=== PATIENT | female | born 1945 | race Caucasian/White ===

== ENCOUNTER → 2016-08-23 | Outpatient (REF) | payer MEDICARE, OTHER ==
[~2016-08-23] MED LIST: ACET65TA OR; AMIO20TA PO; BISO5TAB5 PO; CALC500C16 PO; CALC600T10 PO; CHEW500C2 PO; CIPR500T19 OR; CLEO300C2 PO; CYCL10TA PO; DIGO0.12 PO; DIOVAN PO; DOXY10CA PO; ELIQ5TAB PO; ESTR3TA PO; FISH1000 PO; FLON1SPR; HYDR-3713 PO; LISI-542 PO; LISI10TA4 PO; MAGN400T5 PO; METO50TA2 PO; MULTIVIT PO; OMEP40CA2 PO; ONDA4TAB6 PO; POTA99TA PO; POTASSIUM PO; SUCR1SS PO; SUCR1TAB56 PO; TUMS500C PO; VIT D 4000 PO; VITA-113 PO; VITA200038 PO; VITATAB11 PO; VITMTA PO
[2016-08-23 12:16] LABS: MEAN CORPUSCULAR HEMOGLOBIN 33.3 pg (27.0-33.0); MEAN CORPUSCULAR HGB CONC 33.2 g/dl (32.0-36.5); MEAN CORPUSCULAR VOLUME 100.3 fl (80.0-96.0); RED CELL DISTRIBUTION WIDTH 12.4 % (11.5-14.5)
[2016-08-23 12:42] LABS: ALBUMIN 3.7 GM/DL (3.2-5.2); ALBUMIN/GLOBULIN RATIO 1.09 (1.00-1.93); BILIRUBIN,TOTAL 0.4 MG/DL (0.2-1.0); CALCIUM LEVEL 9.3 MG/DL (8.8-10.2); CREATININE FOR GFR 1.11 MG/DL (0.55-1.02); GLOMERULAR FILTRATION RATE 51.7 (>39); POTASSIUM SERUM 4.7 MEQ/L (3.5-5.1); TOTAL PROTEIN 7.1 GM/DL (6.4-8.2)
== END ==
LOC: M LABDRAW1 11:28
PROVIDERS: ATTEND Internal Medicine Cardiovascular Disease
DX: R42 Dizziness and giddiness (principal); I48.0 Paroxysmal atrial fibrillation; I11.9 Hypertensive heart disease without heart failure; I50.42 Chronic combined systolic (congestive) and diastolic (congestive) heart failure; Z68.32 Body mass index [BMI] 32.0-32.9, adult

== ENCOUNTER → 2016-10-03 | Outpatient (CLI) | payer MEDICARE, OTHER ==
[~2016-10-03] MED LIST changes: +AMIO200T PO; -AMIO20TA PO; -CALC600T10 PO; +CALC600T31 PO; +DOXY100T2 PO; -DOXY10CA PO; -METO50TA2 PO; +METO50TA7 PO
--- NOTE | 2016-10-03 13:11 | REPMRS ---
Patient History The patient states she has not had a clinical breast exam in over a year. Patient is postmenopausal, had previous chest radiation therapy at age 54, and has history of cancer in the right breast at age 53. Family history of breast cancer in sister at age 52. Benign radio exam breast specimen of the right breast, April 23, 2014. Benign stereotatic loc for ea lesion of the right breast, April 23, 2014. US Guided Breast Biopsy of the left breast, February 17, 2014. Malignant lumpectomy of the right breast, 1999. Took estrogen for 22 years. Digital Woman Screen Mammo: October 03, 2016 - Exam #: [id number] Bilateral CC and MLO view(s) were taken. Technologist: Vania Parker, Technologist Prior study comparison: June 25, 2015, bilateral digital mammo screening bilat, performed at [facility]. October 12, 2010, bilateral digital mammo screening bilat, performed at [facility]. FINDINGS: The breast tissue is heterogeneously dense in the left breast. This may lower the sensitivity of mammography. FINDINGS: There are scattered fibroglandular densities in the right breast. There are scattered benign calcifications. ASSESSMENT: BI-RADS/ACR category 2 mammogram. Benign finding(s). Recommendation Follow-up diagnostic mammogram in 1 year. Electronically Signed By: Roman Blank M.D. 10/03/16 [id number]
--- NOTE | 2016-10-05 10:16 | DEXA ---
AP SPINE L1 - L4 1.091 -0.8 0.8 LT FEMUR TOTAL 0.772 -1.9 -0.4 RT FEMUR TOTAL 0.853 -1.2 0.3 TOTAL BODY TOTAL OTHER DUAL FEMUR FRAX* ASSESSMENT Risk factors: History of adult fracture, premature menopause. 10 year probability of fracture Major osteoporotic fracture 22.1 % Hip fracture 5.6 % COMMENTS: Normal bone densitometry of the spine. There is low bone density of hips. The density of the right hip has increased 1.1% since 04/09/2007. The density of the spine is increased 6.6% since the initial exam on 04/02/2002. The spine density has increased 0.3% since the most recent exam on 04/09/2007. The spine density of the left hip has decreased 9.2% since the initial exam on 04/02/2002. The density of the left hip has decreased 9.4% since the most recent exam on . FOLLOW-UP: Recommendation for the next bone density exam: 2 years. LIGIA
== END ==
LOC: M WHC 11:05
PROVIDERS: ATTEND Internal Medicine
DX: Z12.31 Encounter for screening mammogram for malignant neoplasm of breast (principal); M89.9 Disorder of bone, unspecified
CPT/HCPCS: 77080; G0202

== ENCOUNTER → 2017-02-24 | Outpatient (REF) | payer MEDICARE, OTHER | LOC: M LAB REF 12:49 | PROVIDERS: ATTEND Internal Medicine | DX: I48.0 Paroxysmal atrial fibrillation (principal) ==

== ENCOUNTER → 2017-03-17 | Outpatient (CLI) | payer MEDICARE, OTHER | LOC: M RAD 15:59 | DX: R06.02 Shortness of breath (principal) | CPT/HCPCS: 71020 ==

== ENCOUNTER → 2017-10-20 | Outpatient (CLI) | payer MEDICARE, OTHER | LOC: M RAD 10:52 | DX: I51.7 Cardiomegaly (principal); I48.0 Paroxysmal atrial fibrillation; Z12.31 Encounter for screening mammogram for malignant neoplasm of breast; Z92.23 Personal history of estrogen therapy; Z92.89 Personal history of other medical treatment; Z85.3 Personal history of malignant neoplasm of breast; Z95.0 Presence of cardiac pacemaker | CPT/HCPCS: 71046 ==

== ENCOUNTER → 2017-10-20 | Outpatient (CLI) | payer MEDICARE, OTHER | LOC: M RAD 10:44 | DX: Z12.31 Encounter for screening mammogram for malignant neoplasm of breast (principal); Z92.23 Personal history of estrogen therapy; Z92.89 Personal history of other medical treatment; Z85.3 Personal history of malignant neoplasm of breast; Z80.3 Family history of malignant neoplasm of breast; Z95.0 Presence of cardiac pacemaker ==

== ENCOUNTER 2018-07-03 08:26 | Day surgery (SDC) | payer MEDICARE, OTHER ==
[~2018-07-03] VITALS: Ht 167.6 cm; Wt 94.1 kg
[~2018-07-03 08:26] MED LIST changes: +CHLO125TA PO; +HM P99TA PO; +LANO125T4 PO; +MAGN250T7 PO; +MAGN400C2 PO; +NS 1,000 ML IV ONE; +OMEG10002 PO; +SIMV20TA2 PO; +VITATAB73 PO
[2018-07-03] MEDS ORDERED: PROPOFOL 200 MG/20 ML VIAL As Ordered ONE (09:38)
--- NOTE | 2018-07-03 10:07 | ROOR ---
Patient Name: Destiny Vazquez Procedure Date: 07/03/2018 9:35 AM Date of : 1945 Age: 72 Room: [facility] Gender: Female Note Status: Finalized Procedure: Total Colonoscopy to Cecum + Hot Snare Polypectomy + hemoclips Indications: Heme positive stool Providers: Mark Manley MD Referring MD: SARAN STREET JR, MD Requesting Provider: Medicines: Monitored Anesthesia Care Complications: No immediate complications. Procedure: Pre-Anesthesia Assessment: - The heart rate, respiratory rate, oxygen saturations, blood pressure, adequacy of pulmonary ventilation, and response to care were monitored throughout the procedure. The Colonoscope was introduced through the anus and advanced to the cecum, identified by appendiceal orifice and ileocecal valve. The colonoscopy was performed without difficulty. The patient tolerated the procedure well. The quality of the bowel preparation was excellent. Findings: The perianal and digital rectal examinations were normal. Non-bleeding internal hemorrhoids were found during retroflexion. The hemorrhoids were small and Grade I (internal hemorrhoids that do not prolapse). Multiple small and large-mouthed diverticula were found in the recto-sigmoid colon, sigmoid colon and descending colon. A medium polyp was found at 20 cm proximal to the anus. The polyp was semi-pedunculated. The polyp was removed with a hot snare. Resection and retrieval were complete. To prevent bleeding after the polypectomy, three hemostatic clips were successfully placed (MR conditional). There was no bleeding at the end of the procedure. A small polyp was found in the ascending colon. The polyp was sessile. The polyp was removed with a jumbo cold forceps. Resection and retrieval were complete. The exam was otherwise without abnormality on direct and retroflexion views. Impression: - Non-bleeding internal hemorrhoids. - Diverticulosis in the recto-sigmoid colon, in the sigmoid colon and in the descending colon. - One medium polyp at 20 cm proximal to the anus, removed with a hot snare. Resected and retrieved. Clips (MR conditional) were placed. - One small polyp in the ascending colon, removed with a jumbo cold forceps. Resected and retrieved. - The examination was otherwise normal on direct and retroflexion views. - The exam was otherwise normal to the cecum. Recommendation: - Patient has a contact number available for emergencies. The signs and symptoms of potential delayed complications were discussed with the patient. Return to normal activities tomorrow. Written discharge instructions were provided to the patient. - High fiber diet. - Discharge patient to home. - Continue present medications. - Resume Eliquis (apixaban) at prior dose today. - Repeat colonoscopy for surveillance based on pathology results. - Return to referring physician. - Await pathology results. - Telephone GI clinic for pathology results in 1 week. - Check Portal Online for Path Results.([email or web address]) - The findings and recommendations were discussed with the patient's family. Mark Manley MD Mark Manley MD 07/03/2018 10:06:33 AM Electronically signed by Mark Manley MD Number of Addenda: 0 Note Initiated On: 07/03/2018 9:35 AM Estimated Blood Loss: Estimated blood loss: none.
[2018-07-03 10:22] VITALS: BP 176/87
== END 2018-07-03 10:35 | disposition home or self-care (01) ==
LOC: M OPP 08:26
PROVIDERS: ATTEND Internal Medicine Gastroenterology
DX: K64.0 First degree hemorrhoids (principal); K57.30 Diverticulosis of large intestine without perforation or abscess without bleeding; D12.2 Benign neoplasm of ascending colon; R19.5 Other fecal abnormalities

== ENCOUNTER 2018-09-29 07:07 | Emergency (ER) | payer MEDICARE, OTHER ==
[~2018-09-29] VITALS: Ht 167.6 cm; Wt 90.9 kg
[~2018-09-29 07:07] MED LIST changes: -NS 1,000 ML IV ONE
[2018-09-29] MEDS ORDERED: ONDANSETRON 4MG/2ML VIAL (J2405) IV ONE (08:00)
[2018-09-29] MEDS ORDERED: MORPHINE 2 MG/ML 1ML SYRINGE (J2270) IV ONE (08:00)
[2018-09-29 08:15] LABS: BASO % 0.2 % (0.0-1.0); EOS # 0.1 10^3/uL (0.0-0.50); EOS % 0.3 % (0.0-3.0); HEMATOCRIT 39.4 % (36.0-47.0); HEMOGLOBIN 12.7 g/dl (12.0-15.5); LYMPH # 1.4 10^3/uL (1.5-4.5); LYMPH % 9.5 % (24.0-44.0); MEAN CORPUSCULAR HEMOGLOBIN 33.8 pg (27.0-33.0); MEAN CORPUSCULAR HGB CONC 32.2 g/dl (32.0-36.5); MEAN CORPUSCULAR VOLUME 104.8 fl (80.0-96.0); MONO # 1.5 10^3/uL (0.0-0.8); MONO % 10.3 % (0.0-5.0); NEUTROPHILS # 11.4 10^3/uL (1.8-7.7); NEUTROPHILS % 79.1 % (36.0-66.0); PLATELET COUNT, AUTOMATED 206 10^3/uL (150-450); RED BLOOD COUNT 3.76 10^6/uL (4.00-5.40); WHITE BLOOD COUNT 14.4 10^3/uL (4.0-10.0)
[2018-09-29 08:31] LABS: APPEARANCE, URINE CLOUDY (CLEAR); BACTERIA, URINE AUTO 2+ (NEGATIVE); BILIRUBIN, URINE AUTO NEGATIVE (NEGATIVE); BLOOD, URINE BLOOD 2+ (NEGATIVE); COLOR, URINE YELLOW (YELLOW); GLUCOSE, URINE (UA) AUTO NEGATIVE (NEGATIVE); KETONE, URINE AUTO NEGATIVE (NEGATIVE); LEUKOCYTE ESTERASE, URINE AUTO 1+ (NEGATIVE); MUCUS, URINE SMALL (NEGATIVE); NITRITE, URINE AUTO POSITIVE (NEGATIVE); PROTEIN, URINE AUTO NEGATIVE (NEGATIVE); RBC, URINE AUTO 10 /HPF (0-3); SPECIFIC GRAVITY URINE AUTO 1.019 (1.002-1.035); SQUAMOUS EPITHELIAL CELL UR AU 2 /HPF (0-6); UROBILINOGEN, URINE AUTO 0.2 mg/dL (0.0-2.0); WBC, URINE AUTO 42 /HPF (0-3)
[2018-09-29 08:36] LABS: CALCIUM LEVEL 8.8 MG/DL (8.8-10.2); CREATININE FOR GFR 1.45 MG/DL (0.55-1.30); GLOMERULAR FILTRATION RATE 37.8 (>39); POTASSIUM SERUM 4.1 MEQ/L (3.5-5.1)
[2018-09-29] MEDS ORDERED: ISOVUE-370 76% 100ML VIAL (Q9967) As Ordered ONE (08:39)
--- NOTE | 2018-09-29 09:20 | REP ---
CT abdomen and pelvis with IV but without oral contrast: History: Left lower quadrant abdomen pain. CT contrast dose: 100 ml of intravenous Isovue 370. CT findings: Digital preliminary senior radiation protection technician radiograph demonstrates pacemaker leads in a enlarged heart, clips in the right upper quadrant post cholecystectomy, and a normal bowel gas pattern. The lung bases show mild bibasilar linear fibrosis. There is mild diffuse fatty infiltration of the liver. No focal liver lesion is seen. The liver is mildly enlarged with craniocaudal span in the midclavicular line of 18.1 cm. No biliary ductal dilation is appreciated. The spleen is normal in size. There is a tiny subcentimeter hemangioma in the spleen. Granulomatous calcifications are noted. There is a small hiatal hernia. No adrenal lesion is seen. No abnormality is noted in the pancreas. The kidneys enhance symmetrically. There is no evidence of hydronephrosis. There are scattered tiny cortical cysts. The largest is in the lower pole on the left measuring 12 mm. Normal caliber aorta is seen. No retroperitoneal mass or adenopathy is observed. There is a normal appendix in the right lower quadrant. There is scattered pancolonic diverticulosis. These are most numerous in the left colon. There is evidence of acute diverticulitis affecting the sigmoid colon with mural thickening, pericolonic streaking and edema, and luminal narrowing. No abscess or free air is appreciated. The colon is not dilated proximal to this. No ascites is seen. Urinary bladder is unremarkable. The uterus is surgically absent. No adnexal abnormality. Impression: Findings consistent with acute diverticulitis in the sigmoid colon just above the urinary bladder within the left pelvis. No abscess or free air seen. Pancolonic diverticulosis. Hepatomegaly and diffuse fatty infiltration of the liver. Post cholecystectomy and hysterectomy. Electronically Signed by Juan R Barnett MD 09/29/2018 12:02 P
[2018-09-29] MEDS ORDERED: METR-265 PO (10:01)
[2018-09-29] MEDS ORDERED: CIPR-249 PO (10:01)
[2018-09-29] MEDS ORDERED: ONDA4TAB6 PO (10:01)
[2018-09-29] MEDS ORDERED: TYLETAB14 PO (10:01)
[2018-09-29 10:22] VITALS: BP 146/68
== END 2018-09-29 10:24 | disposition home or self-care (01) ==
LOC: M ED 07:07
DX: K57.32 Diverticulitis of large intestine without perforation or abscess without bleeding (principal); N39.0 Urinary tract infection, site not specified; K76.0 Fatty (change of) liver, not elsewhere classified; R16.0 Hepatomegaly, not elsewhere classified; I50.9 Heart failure, unspecified; I10 Essential (primary) hypertension; E78.5 Hyperlipidemia, unspecified; Z87.442 Personal history of urinary calculi; K21.9 Gastro-esophageal reflux disease without esophagitis; Z85.3 Personal history of malignant neoplasm of breast; Z79.01 Long term (current) use of anticoagulants; Z79.899 Other long term (current) drug therapy; Z88.5 Allergy status to narcotic agent
CPT/HCPCS: 74177; 80048; 81001; 85025; 96374; 96375; 99284; J2270; J2405; Q9967

== ENCOUNTER 2018-10-03 10:30 | Emergency (ER) | payer MEDICARE, OTHER ==
[~2018-10-03] VITALS: Ht 167.6 cm; Wt 90.9 kg
[~2018-10-03 10:30] MED LIST changes: +CIPR-249 PO; +METR-265 PO; +TYLETAB14 PO
[2018-10-03] MEDS ORDERED: ACET1TAB16 (10:45)
[2018-10-03] MEDS ORDERED: CIPR500T3 (10:45)
--- NOTE | 2018-10-03 14:08 | REP ---
Right lower extremity Duplex Doppler venous ultrasound: Real time compression and duplex Doppler interrogation of the right lower extremity deep venous system is performed. The right common femoral, superficial femoral and popliteal veins are fully compressible with transducer pressure and demonstrate normal spontaneous and phasic flow, without evidence of deep venous thrombosis. Impression: No evidence of deep venous thrombosis of the right lower extremity femoral popliteal venous system. Electronically Signed by Roman Hatch MD 10/03/2018 01:59 P
[2018-10-03 14:34] VITALS: BP 133/58
== END 2018-10-03 14:53 | disposition home or self-care (01) ==
LOC: M ED 10:30
DX: S86.111A Strain of other muscle(s) and tendon(s) of posterior muscle group at lower leg level, right leg, initial encounter (principal); W18.40XA Slipping, tripping and stumbling without falling, unspecified, initial encounter; Y92.9 Unspecified place or not applicable; Y93.9 Activity, unspecified; Y99.9 Unspecified external cause status; I48.91 Unspecified atrial fibrillation; I50.9 Heart failure, unspecified; I10 Essential (primary) hypertension; E78.5 Hyperlipidemia, unspecified; K21.9 Gastro-esophageal reflux disease without esophagitis; K57.32 Diverticulitis of large intestine without perforation or abscess without bleeding; Z85.3 Personal history of malignant neoplasm of breast; Z87.442 Personal history of urinary calculi; Z95.5 Presence of coronary angioplasty implant and graft; Z95.0 Presence of cardiac pacemaker; Z79.899 Other long term (current) drug therapy; Z88.5 Allergy status to narcotic agent

== ENCOUNTER → 2019-01-23 | Outpatient (CLI) | payer MEDICARE, OTHER ==
[~2019-01-23] MED LIST changes: +ACET1TAB16; -BISO5TAB5 PO; +BISO5TAB9 PO; +CIPR500T3; -OMEP40CA2 PO; +OMEP40CA97 PO
--- NOTE | 2019-01-23 14:59 | REPMRS ---
Patient History The patient states she has not had a clinical breast exam in over a year. Family history of breast cancer at age 52 in sister. Benign radio exam breast specimen of the right breast, April 23, 2014. Benign stereotatic loc for ea lesion of the right breast, April 23, 2014. US Guided Breast Biopsy of the left breast, February 17, 2014. Malignant lumpectomy of the right breast, 2000. Took estrogen for 22 years. Digital Mammo Screening Bilat: January 23, 2019 - Exam #: [id number] Bilateral CC and MLO view(s) were taken. Technologist: Sayda Mayer, Technologist Prior study comparison: October 20, 2017, bilateral digital mammo screening bilat performed at [facility]. October 03, 2016, digital woman screen mammo, performed at [facility]. June 25, 2015, bilateral digital mammo screening bilat performed at [facility]. FINDINGS: There are scattered fibroglandular densities. There are stable post-treatment changes on the right. A pacemaker power plant is again noted projecting in the left axilla on the MLO view. There has been no change in the appearance of the mammogram from the prior studies. There is a mild amount of scattered fibroglandular density which is fairly symmetric. There is no interval development of dominant mass, architectural distortion, or grouped microcalcification suggestive of malignancy. 3-D tomosynthesis shows no additional findings. Assessment: BI-RADS/ACR category 2 mammogram. Benign Findings. Recommendation Routine screening mammogram of both breasts in 1 year (for women over age 40). This mammogram was interpreted with the aid of an FDA-approved computer-aided dectection system. Electronically Signed By: John Barnett MD 01/23/19 [id number]
== END ==
LOC: M RAD 11:28
PROVIDERS: ATTEND Internal Medicine
DX: Z12.31 Encounter for screening mammogram for malignant neoplasm of breast (principal); Z80.3 Family history of malignant neoplasm of breast; Z86.018 Personal history of other benign neoplasm; Z92.23 Personal history of estrogen therapy; I48.0 Paroxysmal atrial fibrillation; Z95.0 Presence of cardiac pacemaker

== ENCOUNTER → 2019-01-23 | Outpatient (CLI) | payer MEDICARE, OTHER ==
[2019-01-23 13:23] LABS: ALBUMIN 4.1 GM/DL (3.2-5.2); BILIRUBIN,TOTAL 0.4 MG/DL (0.2-1.0); CALCIUM LEVEL 10.4 MG/DL (8.8-10.2); CREATININE FOR GFR 1.42 MG/DL (0.55-1.30); GLOMERULAR FILTRATION RATE 38.6 (>39); POTASSIUM SERUM 4.1 MEQ/L (3.5-5.1)
== END ==
LOC: M LAB 11:23
PROVIDERS: ATTEND Physician Assistant
DX: I48.0 Paroxysmal atrial fibrillation (principal)

== ENCOUNTER → 2020-02-11 | Outpatient (CLI) | payer MEDICARE, OTHER ==
[~2020-02-11] MED LIST changes: -AMIO200T PO; +AMIO200T3 PO; +BISO5TAB14 PO; -BISO5TAB9 PO; +CYCL-707 PO; -CYCL10TA PO; -SIMV20TA2 PO; +SIMV20TA22 PO
--- NOTE | 2020-02-11 16:03 | REPMRS ---
Patient History The patient states she has not had a clinical breast exam in over a year. Patient is postmenopausal, had previous chest radiation therapy at age 54, and has history of cancer in the right breast at age 53. Family history of breast cancer at age 52 in sister. Benign radio exam breast specimen of the right breast, April 23, 2014. Benign stereotatic loc for ea lesion of the right breast, April 23, 2014. US Guided Breast Biopsy of the left breast, February 17, 2014. Malignant lumpectomy of the right breast, 1999. Radiation therapy of the right breast. Took estrogen for 22 years. 3D TOMOSYNTHESIS WAS PERFORMED. [employer] breast density b. Digital Woman Screen Mammo: February 11, 2020 - Exam #: [id number] Bilateral CC and MLO view(s) were taken. Technologist: Elham Cash, Technologist Prior study comparison: January 23, 2019, bilateral digital mammo screening bilat, performed at [facility]. October 20, 2017, bilateral digital mammo screening bilat, performed at [facility]. FINDINGS: There are scattered fibroglandular densities. There has been no change in the appearance of the mammogram from the prior studies. There is a mild amount of residual fibroglandular tissue which is fairly symmetric. There is no interval development of dominant mass, architectural distortion, or clustered microcalcification suggestive of malignancy. Assessment: BI-RADS/ACR category 1 mammogram. Negative Mammogram. Recommendation Routine screening mammogram in 1 year (for women over age 40). This mammogram was interpreted with the aid of an FDA-approved computer-aided dectection system. Electronically Signed By: Roman Hatch MD 02/11/20 [id number]
--- NOTE | 2020-02-11 16:19 | DEXAMM ---
INDICATION: M81.0 AGE RELATED OSTEOPOROSIS. COMPARISON: 10/03/2016 as well as other prior exams. TECHNIQUE: Bone density was measured using dual-energy x-ray absorptiometry (DEXA). FINDINGS: AP SPINE L1-L4 BMD 1.129 g/cm2 Young Adult T-Score -0.5 Age Matched Z-Score 1.2. LT FEMUR, TOTAL BMD 0.841 g/cm2 Young Adult T-Score -1.3 Age Matched Z-Score 0.4. LT NECK BMD 0.723 g/cm2 Young Adult T-Score -2.3 Age Matched Z-Score -0.4. RT FEMUR, TOTAL BMD 0.824 g/cm2 Young Adult T-Score -1.5 Age Matched Z-Score 0.2. RT NECK BMD 0.643 g/cm2 Young Adult T-Score -2.8 Age Matched Z-Score -1.0. IMPRESSION: There is normal bone density of the spine. There is low bone density of the left hip. There is osteoporosis of the right hip. The density of the spine has increased 10.4% since the initial exam on 04/02/2002. The density of the spine increased 3.5% since most recent exam on 10/03/2016. The density of the left hip has decreased 1.1% since initial exam on 04/02/2002. The density of the left hip has increased 8.9% since most recent exam on 10/03/2016. The density of the right hip has decreased 2.4% since the initial exam on 04/09/2007. The density of the right hip has decreased 3.4% since the most recent exam on 10/03/2016. FOLLOW-UP: Recommendation for the next bone density exam: 2 years. <Electronically signed by Roman Hatch > 02/11/20 [id number]
== END ==
LOC: M WHC 15:04
PROVIDERS: ATTEND Internal Medicine
DX: Z12.31 Encounter for screening mammogram for malignant neoplasm of breast (principal); M81.0 Age-related osteoporosis without current pathological fracture; Z85.3 Personal history of malignant neoplasm of breast; Z92.3 Personal history of irradiation; Z80.3 Family history of malignant neoplasm of breast; M85.851 Other specified disorders of bone density and structure, right thigh; M85.852 Other specified disorders of bone density and structure, left thigh

== ENCOUNTER → 2021-03-10 | Outpatient (CLI) | payer MEDICARE, OTHER ==
[~2021-03-10] MED LIST changes: +CALC-362 PO; -CHEW500C2 PO; -HM P99TA PO; -LISI-542 PO; +LISI-898 PO; +LISI10TA22 PO; -LISI10TA4 PO; +OMEP40CA4 PO; -OMEP40CA97 PO; +POTA99TA14 PO
--- NOTE | 2021-03-10 11:50 | REPMRS ---
Patient History The patient states she has not had a clinical breast exam in over a year. Family history of breast cancer at age 52 in sister. Benign radio exam breast specimen of the right breast, April 23, 2014. Benign stereotatic loc for ea lesion of the right breast, April 23, 2014. US Guided Breast Biopsy of the left breast, February 17, 2014. Malignant lumpectomy of the right breast, 1999. Radiation therapy of the right breast. Took estrogen for 22 years. Tomosynthesis is performed. Volpara breast density is b. Patient states no breast complaints today. Patient has signed MRS History Sheet. Digital Woman Screen Mammo: March 10, 2021 - Exam #: [id number] Bilateral CC and MLO view(s) were taken. Technologist: Elham Cash, Technologist Prior study comparison: February 11, 2020, bilateral digital woman screen mammo performed at [facility]. January 23, 2019, bilateral digital mammo screening bilat, performed at [facility]. FINDINGS: There are scattered fibroglandular densities. There has been no change in the appearance of the mammogram from the prior studies. There is a mild amount of residual fibroglandular tissue which is fairly symmetric. There is no interval development of dominant mass, architectural distortion, or clustered microcalcification suggestive of malignancy. Assessment: BI-RADS/ACR category 1 mammogram. Negative Mammogram. Recommendation Routine screening mammogram in 1 year (for women over age 40). This mammogram was interpreted with the aid of an FDA-approved computer-aided dectection system. Electronically Signed By: Roman Hatch MD 03/10/21 [id number]
== END ==
LOC: M WHC 09:45
PROVIDERS: ATTEND Internal Medicine
DX: Z12.31 Encounter for screening mammogram for malignant neoplasm of breast (principal); Z80.3 Family history of malignant neoplasm of breast

== ENCOUNTER → 2021-07-09 | Outpatient (CLI) | payer MEDICARE, OTHER ==
[~2021-07-09] MED LIST changes: -ACET1TAB16; +ACET300T48; -AMIO200T3 PO; +AMIO200T49 PO; -LISI-898 PO; +LISI5TAB11 PO
== END ==
LOC: M PLAIMG 10:19
PROVIDERS: ATTEND Physician Assistant
DX: I48.0 Paroxysmal atrial fibrillation (principal); Z95.0 Presence of cardiac pacemaker

== ENCOUNTER → 2022-09-06 | Outpatient (CLI) | payer MEDICARE, OTHER | LOC: M WHC 10:59 | PROVIDERS: ATTEND Internal Medicine | DX: Z12.31 Encounter for screening mammogram for malignant neoplasm of breast (principal); Z85.3 Personal history of malignant neoplasm of breast ==

== ENCOUNTER → 2023-02-13 | Outpatient (REF) | payer MEDICARE, OTHER | LOC: M LAB REF 16:09 | PROVIDERS: ATTEND Internal Medicine | DX: I48.0 Paroxysmal atrial fibrillation (principal) ==

== ENCOUNTER 2023-04-12 14:19 | Emergency (ER) | payer MEDICARE, OTHER ==
[~2023-04-12] VITALS: Ht 167.6 cm; Wt 96.9 kg
[2023-04-12] MEDS ORDERED: ACETAMINOPHEN *IV* 1,000 MG in IV 1 EA IV ONE (16:25)
[2023-04-12 17:05] LABS: BASO % 0.2 % (0.0-1.0); EOS # 0.1 10^3/uL (0.0-0.5); EOS % 0.6 % (0.0-3.0); HEMATOCRIT 45.1 % (36.0-47.0); HEMOGLOBIN 14.6 g/dl (12.0-15.5); LYMPH # 1.5 10^3/uL (1.5-5.0); LYMPH % 10.4 % (24.0-44.0); MEAN CORPUSCULAR HGB CONC 32.4 g/dl (32.0-36.5); MEAN CORPUSCULAR VOLUME 101.8 fl (80.0-96.0); MONO # 1.1 10^3/uL (0.0-0.8); MONO % 7.6 % (2.0-8.0); NEUTROPHILS # 11.8 10^3/uL (1.5-8.5); NEUTROPHILS % 80.8 % (36.0-66.0); PLATELET COUNT, AUTOMATED 224 10^3/uL (150-450); RED BLOOD COUNT 4.43 10^6/uL (4.00-5.40); WHITE BLOOD COUNT 14.6 10^3/uL (4.0-10.0)
[2023-04-12] MEDS ORDERED: AUGMENTIN 875 MG TAB PO ONE (17:25)
[2023-04-12 17:28] LABS: ALBUMIN 4.1 G/DL (3.2-5.2); BILIRUBIN,DIRECT 0.2 MG/DL (<0.4); BILIRUBIN,TOTAL 0.7 MG/DL (0.3-1.2); TOTAL PROTEIN 7.5 G/DL (5.7-8.2)
[2023-04-12] MEDS ORDERED: AMOX875T2 PO (19:11)
[2023-04-12 19:21] VITALS: BP 147/89; TEMP 96.1; O2SAT 97
== END 2023-04-12 19:24 | disposition home or self-care (01) ==
LOC: M ED 14:19
DX: K57.30 Diverticulosis of large intestine without perforation or abscess without bleeding (principal); N20.0 Calculus of kidney; K21.9 Gastro-esophageal reflux disease without esophagitis; E78.5 Hyperlipidemia, unspecified; K44.9 Diaphragmatic hernia without obstruction or gangrene; Z86.79 Personal history of other diseases of the circulatory system; Z88.5 Allergy status to narcotic agent; Z79.01 Long term (current) use of anticoagulants; Z79.811 Long term (current) use of aromatase inhibitors; Z79.83 Long term (current) use of bisphosphonates; Z79.899 Other long term (current) drug therapy; Z79.2 Long term (current) use of antibiotics
CPT/HCPCS: 74176; 80047; 80076; 83690; 85025; 96365; 99284; J0131

== ENCOUNTER → 2023-08-10 | Outpatient (REF) | payer MEDICARE, OTHER ==
[~2023-08-10] MED LIST changes: +AMOX875T2 PO
== END ==
LOC: M LAB REF 12:39
PROVIDERS: ATTEND Internal Medicine
DX: I48.0 Paroxysmal atrial fibrillation (principal); Z79.01 Long term (current) use of anticoagulants

== ENCOUNTER → 2024-02-22 | Outpatient (REF) | payer MEDICARE, OTHER ==
[~2024-02-22] MED LIST changes: +ONDA-282 PO; -ONDA4TAB6 PO
== END ==
LOC: M LAB REF 12:49
PROVIDERS: ATTEND Internal Medicine
DX: I48.0 Paroxysmal atrial fibrillation (principal)

== ENCOUNTER → 2024-07-25 | Outpatient (CLI) | payer MEDICARE, OTHER | LOC: M PLAIMG 11:55 | PROVIDERS: ATTEND Physician Assistant | DX: I48.0 Paroxysmal atrial fibrillation (principal) ==

== ENCOUNTER → 2024-08-02 | Outpatient (REF) | payer MEDICARE, OTHER | LOC: M LAB REF 12:17 | PROVIDERS: ATTEND Internal Medicine | DX: I48.0 Paroxysmal atrial fibrillation (principal) ==

== ENCOUNTER → 2024-10-14 | Outpatient (CLI) | payer MEDICARE, OTHER ==
[~2024-10-14] MED LIST changes: -AMIO200T49 PO; +AMIO200T54 PO
== END ==
LOC: M WHC 13:33
PROVIDERS: ATTEND Internal Medicine
DX: Z12.31 Encounter for screening mammogram for malignant neoplasm of breast (principal); M81.0 Age-related osteoporosis without current pathological fracture; M85.89 Other specified disorders of bone density and structure, multiple sites; Z85.3 Personal history of malignant neoplasm of breast; R92.323 Mammographic fibroglandular density, bilateral breasts

== ENCOUNTER → 2024-10-17 | Outpatient (CLI) | payer MEDICARE, OTHER | LOC: M PLAIMG 14:33 | PROVIDERS: ATTEND Physician Assistant | DX: I27.20 Pulmonary hypertension, unspecified (principal); Z95.0 Presence of cardiac pacemaker; I08.0 Rheumatic disorders of both mitral and aortic valves ==

== ENCOUNTER → 2024-11-14 | Outpatient (CLI) | payer MEDICARE, OTHER | LOC: M SLEEP HO 11:05 | PROVIDERS: ATTEND Physician Assistant | DX: I27.20 Pulmonary hypertension, unspecified (principal); G47.33 Obstructive sleep apnea (adult) (pediatric) ==

== ENCOUNTER → 2024-11-20 | Outpatient (REF) | payer MEDICARE, OTHER | LOC: M LAB REF 14:14 | PROVIDERS: ATTEND Nurse Practitioner Adult Health | DX: R71.8 Other abnormality of red blood cells (principal) ==

== ENCOUNTER → 2025-02-06 | Outpatient (REF) | payer MEDICARE, OTHER ==
[2025-02-06 15:24] LABS: DIGOXIN LEVEL 0.9 NG/ML (0.8-2.0); PHOSPHORUS LEVEL 3.5 MG/DL (2.4-5.1)
[2025-02-06 15:25] LABS: PTH INTACT 53.7 PG/ML (18.5-88.0)
== END ==
LOC: M LAB REF 14:41
PROVIDERS: ATTEND Internal Medicine
DX: I50.32 Chronic diastolic (congestive) heart failure (principal); I48.0 Paroxysmal atrial fibrillation; M85.9 Disorder of bone density and structure, unspecified; M81.0 Age-related osteoporosis without current pathological fracture